=== PATIENT | male | born 1995 | race Caucasian/White ===

== ENCOUNTER 2021-11-07 12:17 | Emergency (ER) | payer BC ==
[~2021-11-07] VITALS: Ht 188 cm; Wt 102.1 kg
--- NOTE | 2021-11-07 12:30 | NUR ---
Patient came in to the er c/o abd chin. On room air, breathing evenly and unlabored. connected to the monitor and pulse ox. kept comfortable, will cotninue to monitor accordingly.
[2021-11-07] MEDS ORDERED: KETOROLAC TROMETHAMINE 15 MG/ML VIAL ONE (12:40)
[2021-11-07] MEDS ORDERED: ONDANSETRON HCL/PF 4 MG/2 ML VIAL ONE (12:40)
--- NOTE | 2021-11-07 12:45 | NUR ---
IV access initiated and blood drawned and sent to lab.
[2021-11-07 12:51] LABS: BASOPHILS % (AUTO) 0.3 % (0.0-2.0); EOSINOPHILS % (AUTO) 0.2 % (0.0-6.0); HEMATOCRIT 47 % (39-51); HEMOGLOBIN 16.4 g/dL (13.5-17.5); LYMPHOCYTES # (AUTO) 1.3 K/uL (0.8-4.8); LYMPHOCYTES % (AUTO) 11.9 % (20.0-44.0); MEAN CORPUSCULAR HGB CONC 35 g/dl (31.0-36.0); MEAN CORPUSCULAR VOLUME 82 fL (80-96); MONOCYTES # (AUTO) 0.5 K/uL (0.1-1.30); MONOCYTES % (AUTO) 4.9 % (2.0-12.0); NEUTROPHILS # (AUTO) 8.7 K/uL (1.8-8.9); NEUTROPHILS % (AUTO) 82.7 % (43.0-81.0); PLATELET COUNT (AUTO) 305 K/uL (150-450); RED BLOOD CELL COUNT(AUTO) 5.81 MIL/uL (4.5-6.0); WHITE BLOOD COUNT (AUTO) 10.5 K/uL (4.3-11.0)
[2021-11-07] MEDS ORDERED: ONDANSETRON HCL/PF 4 MG/2 ML VIAL IVP ONE (13:00)
[2021-11-07] MEDS ORDERED: IV NS 0.9% 1,000 ML BAG IV ONE (13:00)
[2021-11-07] MEDS ORDERED: KETOROLAC TROMETHAMINE INJ 30 MG/ML VIAL IV ONE (13:00)
[2021-11-07 13:07] LABS: ALBUMIN 4.9 g/dL (3.4-5.0); BILIRUBIN,DIRECT 0.1 mg/dL (0.0-0.2); BILIRUBIN,TOTAL 0.7 mg/dL (0.2-1.0); CALCIUM, SERUM 9.5 mg/dL (8.5-10.1); CREATININE 1.1 mg/dL (0.6-1.3); POTASSIUM 3.8 mmol/L (3.5-5.1); TOTAL PROTEIN, SERUM 8.6 g/dL (6.4-8.2)
[2021-11-07] MEDS ORDERED: HALOPERIDOL LACTATE INJ 5 MG/ML VIAL ONE (13:40)
[2021-11-07] MEDS ORDERED: TRAMADOL HCL 50 MG TABLET ONE (13:41)
[2021-11-07] MEDS ORDERED: TRAM-351 PO (13:59)
[2021-11-07] MEDS ORDERED: ONDA4TAB11 PO (13:59)
[2021-11-07] MEDS ORDERED: HALOPERIDOL LACTATE INJ 5 MG/ML VIAL IM ONE (14:00)
[2021-11-07] MEDS ORDERED: TRAMADOL HCL 50 MG TABLET PO ONE (14:00)
[2021-11-07] MEDS ORDERED: DICY10CA37 PO (15:17)
[2021-11-07 15:20] VITALS: BP 133/88
--- NOTE | 2021-11-07 15:21 | NUR ---
Patient discharged to home in stable condition. Written and verbal after care instructions given. Patient verbalizes understanding of instruction.IV removed. Catheter intact and site benign. Pressure and 4x4 applied to site. No bleeding noted.
== END 2021-11-07 15:21 | disposition home or self-care (01) ==
LOC: ER 12:42
DX: Z60.2 Problems related to living alone (principal); R10.9 Unspecified abdominal pain; R19.7 Diarrhea, unspecified; R11.2 Nausea with vomiting, unspecified
CPT/HCPCS: 99284; 96374; 96361; 96375; 85025; 80048; 83690; 80076; 36415; 96372; J1630; J2405; J7030; J1885

== ENCOUNTER 2021-11-11 07:39 | Emergency (ER) | payer BC ==
[~2021-11-11] VITALS: Ht 188 cm; Wt 102.1 kg
[~2021-11-11 07:39] MED LIST: DICY10CA37 PO; ONDA4TAB11 PO; TRAM-351 PO
[2021-11-11] MEDS ORDERED: METO-295 PO (07:51)
[2021-11-11] MEDS ORDERED: METOCLOPRAMIDE HCL 10 MG/2 ML VIAL ONE (07:54)
[2021-11-11] MEDS ORDERED: METOCLOPRAMIDE HCL 10 MG/2 ML VIAL IM ONE (08:00)
[2021-11-11 08:25] VITALS: BP 136/89
== END 2021-11-11 08:26 | disposition home or self-care (01) ==
LOC: ER 07:44
DX: R11.2 Nausea with vomiting, unspecified (principal); Z60.2 Problems related to living alone; Z79.899 Other long term (current) drug therapy
CPT/HCPCS: 99283; 96372; J2765

== ENCOUNTER 2021-12-26 08:23 | Inpatient (IN) | payer BC ==
[~2021-12-26] VITALS: Ht 190.5 cm; Wt 84.6 kg
[~2021-12-26 08:23] MED LIST changes: +METO-295 PO
[2021-12-26] MEDS ORDERED: FAMOTIDINE/PF INJ 20 MG/2 ML VIAL IV ONE ×2 (09:00→09:05)
[2021-12-26] MEDS ORDERED: MAG HYDROX/AL HYDROX/SIMETH 30 ML UDC PO ONE (09:00)
[2021-12-26] MEDS ORDERED: ONDANSETRON HCL/PF 4 MG/2 ML VIAL IVP ONE (09:00)
[2021-12-26] MEDS ORDERED: ONDANSETRON HCL/PF 4 MG/2 ML VIAL ONE ×2 (09:05→12:02)
[2021-12-26] MEDS ORDERED: MAG HYDROX/AL HYDROX/SIMETH 30 ML UDC ONE ×2 (09:05→10:47)
--- NOTE | 2021-12-26 09:15 | NUR ---
RESEARCH SOFTWARE ENGINEER AT BED SIDE
[2021-12-26 09:30] LABS: BASOPHILS % (AUTO) 0.2 % (0.0-2.0); EOSINOPHILS % (AUTO) 0.3 % (0.0-6.0); HEMATOCRIT 46 % (39-51); HEMOGLOBIN 15.5 g/dL (13.5-17.5); LYMPHOCYTES # (AUTO) 1.3 K/uL (0.8-4.8); LYMPHOCYTES % (AUTO) 9.7 % (20.0-44.0); MEAN CORPUSCULAR HGB CONC 34 g/dl (31.0-36.0); MEAN CORPUSCULAR VOLUME 82 fL (80-96); MONOCYTES # (AUTO) 0.6 K/uL (0.1-1.30); MONOCYTES % (AUTO) 4.4 % (2.0-12.0); NEUTROPHILS # (AUTO) 11.3 K/uL (1.8-8.9); NEUTROPHILS % (AUTO) 85.4 % (43.0-81.0); PLATELET COUNT (AUTO) 301 K/uL (150-450); RED BLOOD CELL COUNT(AUTO) 5.61 MIL/uL (4.5-6.0); WHITE BLOOD COUNT (AUTO) 13.2 K/uL (4.3-11.0)
--- NOTE | 2021-12-26 09:30 | NUR ---
BIBS C/O ABDOMINAL PAIN/NAUSEA AND VOMITING X 4 DAYS. AMBULATORY, PLACED ON BED, AAOX4, NAUSEATED-VOMITING, IN PAIN 8/ PS
[2021-12-26 09:49] LABS: ALBUMIN 4.6 g/dL (3.4-5.0); BILIRUBIN,DIRECT 0.2 mg/dL (0.0-0.2); CALCIUM, SERUM 9.3 mg/dL (8.5-10.1); POTASSIUM 3.8 mmol/L (3.5-5.1); TOTAL PROTEIN, SERUM 7.9 g/dL (6.4-8.2)
[2021-12-26] MEDS ORDERED: METOCLOPRAMIDE HCL 10 MG/2 ML VIAL IV ONE (10:00)
[2021-12-26] MEDS ORDERED: MORPHINE SULFATE INJ 2 MG/ML DISP.SYRIN IV ONE (10:00)
[2021-12-26] MEDS ORDERED: MORPHINE SULFATE INJ 4 MG/ML DISP.SYRIN ONE (10:47)
[2021-12-26] MEDS ORDERED: METOCLOPRAMIDE HCL 10 MG/2 ML VIAL ONE (10:48)
[2021-12-26] MEDS ORDERED: ONDANSETRON HCL/PF 4 MG/2 ML VIAL IV ONE (11:00)
[2021-12-26] MEDS ORDERED: NOREPINEPHRINE 8 MG in IV NS 0.9% 242 ML IV PRN (11:00)
[2021-12-26] MEDS ORDERED: HALOPERIDOL LACTATE INJ 5 MG/ML VIAL IV ONE (14:00)
[2021-12-26] MEDS ORDERED: HALOPERIDOL LACTATE INJ 5 MG/ML VIAL ONE (14:37)
[2021-12-26] MEDS ORDERED: IV NS 0.9% 1,000 ML IV ONE (15:00)
--- NOTE | 2021-12-26 15:00 | NUR ---
MOVE SHEET SUBMITTED.
--- NOTE | 2021-12-26 15:10 | NUR ---
JC FOR COVID19 SENT TO LAB
--- NOTE | 2021-12-26 20:23 | NUR ---
RM CHANGED TO 307-2
--- NOTE | 2021-12-26 20:25 | NUR ---
REPORT GIVEN TO MATTHEW HENNESSY ROOM 307-2 FOR VERNA
[2021-12-26 20:45] VITALS: BP 137/71
--- NOTE | 2021-12-26 21:26 | NUR ---
INTERNAL AFFAIRS INVESTIGATOR NOTES: RECEIVED PATIENT VIA GURNEY ON FLOOR AT 2054, PLACED IN BED COMFORTABLY, BED IN LOW POSITION CALL LIGHTS WITHIN REACH, NO COMPLAIN OF PAIN AND DISCOMFORT AT THIS TIME , ON ROOM AIR SATURATING WELL, ADMITTED TO MED SURG, V/S ARE WITHIN NORMAL RANGE PATIENT IS A/OX4 AMBULATORY ABLE TO MAKE NEEDS KNOWN, SKIN ASSESSMENT DONE, NO SKIN ISSUES HAS BEEN OBSERVED, PATIENT REFUSED GOWN CHANGED, INVENTORY OF ITEMS DONE AND DOCUMENTED/SIGNED, PATIENT WAS ORIENTED TO ROOM REMIND TO USE CALL LIGHTS WHEN NEEDED ASSISTANCE, PATIENT KEPT CLEAN AND DRY ALL NEEDS MET WILL CONTINUE TO MONITOR.
[2021-12-26] MEDS ORDERED: diphenhydrAMINE HCL 50 MG/ML VIAL IV PRN (21:30)
[2021-12-26] MEDS ORDERED: Z GUARD REMEDY 4 OZ OINT TP PRN (21:30)
[2021-12-26] MEDS ORDERED: ACETAMINOPHEN 325 MG TABLET PO PRN (21:30)
[2021-12-26] MEDS: METOCLOPRAMIDE HCL 10 MG/2 ML VIAL IV SCH (22:01)
[2021-12-26] MEDS: IV LR 1000 ML 1,000 ML IV PRN (22:16)
[2021-12-27] MEDS: METOCLOPRAMIDE HCL 10 MG/2 ML VIAL IV SCH ×3 (03:39→14:58)
--- NOTE | 2021-12-27 04:52 | NUR ---
CHARGE NURSE NOTES COMPLAINED OF ABDOMINAL PAIN- GOT AN ORDER FROM [facility] SOFIA-KOBI MORPHINE 2 MG IV GIVEN Q6HRS. PRN, ORDER NOTED AND CARRIED OUT
[2021-12-27] MEDS: ONDANSETRON HCL/PF 4 MG/2 ML VIAL IVP PRN ×3 (06:17→17:47)
[2021-12-27 06:19] LABS: CALCIUM, SERUM 8.8 mg/dL (8.5-10.1); PHOSPHORUS 3.8 mg/dL (2.5-4.9); POTASSIUM 3.4 mmol/L (3.5-5.1)
[2021-12-27 07:22] LABS: BASOPHILS % (AUTO) 0.4 % (0.0-2.0); EOSINOPHILS % (AUTO) 1.4 % (0.0-6.0); HEMATOCRIT 42 % (39-51); HEMOGLOBIN 14.1 g/dL (13.5-17.5); LYMPHOCYTES # (AUTO) 1.8 K/uL (0.8-4.8); LYMPHOCYTES % (AUTO) 25.3 % (20.0-44.0); MEAN CORPUSCULAR HGB CONC 34 g/dl (31.0-36.0); MEAN CORPUSCULAR VOLUME 83 fL (80-96); MONOCYTES # (AUTO) 0.4 K/uL (0.1-1.30); MONOCYTES % (AUTO) 6.1 % (2.0-12.0); NEUTROPHILS # (AUTO) 4.9 K/uL (1.8-8.9); NEUTROPHILS % (AUTO) 66.8 % (43.0-81.0); PLATELET COUNT (AUTO) 265 K/uL (150-450); RED BLOOD CELL COUNT(AUTO) 5.08 MIL/uL (4.5-6.0); WHITE BLOOD COUNT (AUTO) 7.3 K/uL (4.3-11.0)
--- NOTE | 2021-12-27 07:27 | NUR ---
MS RN OPENING NOTES PATIENT RECEIVED AWAKE IN BED IN NO ACUTE SIGNS OF DISTRESS. A/O X4, ABLE TO MAKE NEEDS KNOWN, DENIES PAIN OR ANY DISCOMFORTS AT THIS TIME. ON ROOM AIR, BREATHING EVEN AND UNLABORED. IV ACCESS ON RAC #20G INTACT WITH IVF OF LR @ 100 ML/HR INFUSING WELL, NO S/S OF INFILTRATION NOTED. SAFETY PRECAUTIONS IN PLACE: BED LOCKED IN LOW POSITION, SIDE RAILS X2, TRAY TABLE AND CALL LIGHT WITHIN EASY REACH OF PT . WILL CONTINUE TO MONITOR PT ACCORDINGLY.
--- NOTE | 2021-12-27 07:30 | NUR ---
MS RN CLOSING NOTES: PATIENT SLEEP IN BED COMFORTABLY, BED IN LOW POSITION CALL LIGHTS WITHIN REACH, NO COMPLAIN OF PAIN AND DISCOMFORT AT THIS TIME, ON ROOM AIR SATURATING WELL, WITH IV LINE AT RAC#20 WITH ONGOING PLR 1000ML@ 100ML/HR INFUSING WELL, PATIENT IS AMBULATORY, A/O ABLE TO MAKE NEEDS KNOWN, PATIENT KEPT CLEAN AND DRY ALL NEEDS MET ENDORSE TO INCOMING SHIFT.
[2021-12-27 08:00] VITALS: BP 142/75
[2021-12-27] MEDS: IV LR 1000 ML 1,000 ML IV PRN (08:57)
[2021-12-27] MEDS: POTASSIUM CL. PREMIX PERIPHER. 50 ML IV SCH ×2 (09:24→10:48)
[2021-12-27] MEDS: MORPHINE SULFATE INJ 2 MG/ML DISP.SYRIN IV PRN ×2 (10:15→16:30)
--- NOTE | 2021-12-27 10:18 | NUR ---
RN NOTES PT C//O ACHING AND SHARP MID LOWER ABDOMINAL PAIN, 8/10 SCALE. PRN MORPHINE 2 MG IVP ADMINISTERED AT 1015. WILL CONTINUE TO MONITOR AND REASSESS PT.
[2021-12-27] MEDS ORDERED: HYOS-15 PO (14:24)
[2021-12-27] MEDS ORDERED: ONDA4TAB11 PO (14:24)
[2021-12-27] MEDS ORDERED: PANT40TA2 PO (14:24)
[2021-12-27] MEDS ORDERED: SUCR1TAB31 PO (14:24)
[2021-12-27 16:00] VITALS: BP 136/66
--- NOTE | 2021-12-27 18:01 | NUR ---
ENGINE WIPER NOTES PT DISCHARGED HOME IN STABLE CONDITION. A/O X4. ABLE TO MAKE NEEDS KNOWN. NO SKIN ISSUES NOTED. ALL BELONGINGS ACCOUNTED FOR AND PT SIGNED BELONGINGS LIST. IV ACCESS ON RAC G#2O REMOVED WITH NO ACTIVE BLEEDING NOTED, DRY PRESSURE DRESSING APPLIED AT SITE. NAME/ARM BAND REMOVED. HEALTH TEACHINGS AND DISCHARGE INSTRUCTIONS GIVEN TO PATIENT AND VERBALIZED UNDERSTANDING. EXIT FOLDER HANDED TO PT. PT LEFT UNIT @ 1755 AMBULATORY ACCOMPANIED BY JEAN SAMS. AND CHARGE NURSE AWARE OF DISCHARGE.
[2021-12-28] MEDS ORDERED: HALOPERIDOL LACTATE INJ 5 MG/ML VIAL ONE (09:49)
== END 2021-12-27 18:00 | disposition home or self-care (01) | DRG 395 ==
LOC: ER 08:25 → TRANSITION 17:38 → MED 20:27
PROVIDERS: ADMIT Nurse Practitioner Acute Care; ATTEND Nurse Practitioner Acute Care
DX: R11.15 Cyclical vomiting syndrome unrelated to migraine (principal); F31.9 Bipolar disorder, unspecified; Z20.822 Contact with and (suspected) exposure to COVID-19; R63.0 Anorexia; F12.90 Cannabis use, unspecified, uncomplicated; Z68.23 Body mass index [BMI] 23.0-23.9, adult; E87.6 Hypokalemia
CPT/HCPCS: 36415; 76870-TC; 80048-TC; 80076-TC; 83690-TC; 83735-TC; 84100-TC; 85025-TC; 87081-TC; C9803; G0378; J1630; J2270; J2405; J2765; J3480; J3490; J7120

== ENCOUNTER 2021-12-28 07:35 | Inpatient (IN) | payer BC ==
[~2021-12-28] VITALS: Ht 190.5 cm; Wt 83.0 kg
[~2021-12-28 07:35] MED LIST changes: -DICY10CA37 PO; +HYOS-15 PO; -METO-295 PO; +PANT40TA2 PO; +SUCR1TAB31 PO; -TRAM-351 PO
[2021-12-28] MEDS ORDERED: IV NS 0.9% 1,000 ML BAG IV ONE (08:00)
[2021-12-28] MEDS ORDERED: FAMOTIDINE/PF INJ 20 MG/2 ML VIAL IV ONE ×2 (08:00→08:01)
[2021-12-28] MEDS ORDERED: ONDANSETRON HCL/PF 4 MG/2 ML VIAL IVP ONE (08:00)
[2021-12-28] MEDS ORDERED: ONDANSETRON HCL/PF 4 MG/2 ML VIAL ONE (08:01)
[2021-12-28 08:14] LABS: BASOPHILS % (AUTO) 0.3 % (0.0-2.0); EOSINOPHILS % (AUTO) 0.6 % (0.0-6.0); HEMATOCRIT 42 % (39-51); HEMOGLOBIN 14.5 g/dL (13.5-17.5); LYMPHOCYTES # (AUTO) 1.1 K/uL (0.8-4.8); LYMPHOCYTES % (AUTO) 14.9 % (20.0-44.0); MEAN CORPUSCULAR HGB CONC 34 g/dl (31.0-36.0); MEAN CORPUSCULAR VOLUME 82 fL (80-96); MONOCYTES # (AUTO) 0.5 K/uL (0.1-1.30); MONOCYTES % (AUTO) 7.3 % (2.0-12.0); NEUTROPHILS # (AUTO) 5.6 K/uL (1.8-8.9); NEUTROPHILS % (AUTO) 76.9 % (43.0-81.0); PLATELET COUNT (AUTO) 277 K/uL (150-450); RED BLOOD CELL COUNT(AUTO) 5.15 MIL/uL (4.5-6.0); WHITE BLOOD COUNT (AUTO) 7.3 K/uL (4.3-11.0)
[2021-12-28 08:23] LABS: CALCIUM, SERUM 9.1 mg/dL (8.5-10.1); CREATININE 0.9 mg/dL (0.6-1.3); POTASSIUM 3.7 mmol/L (3.5-5.1)
[2021-12-28 08:29] LABS: ALBUMIN 4.5 g/dL (3.4-5.0); BILIRUBIN,DIRECT 0.2 mg/dL (0.0-0.2); TOTAL PROTEIN, SERUM 7.6 g/dL (6.4-8.2)
[2021-12-28] MEDS: POTASSIUM CHLORIDE 20 MEQ TAB.PRT.SR PO ONE ×2 (10:00→10:50)
[2021-12-28] MEDS ORDERED: HALOPERIDOL LACTATE INJ 5 MG/ML VIAL IVP ONE (10:00)
[2021-12-28] MEDS ORDERED: Z GUARD REMEDY 4 OZ OINT TP PRN (11:30)
[2021-12-28] MEDS ORDERED: MAGNESIUM HYDROXIDE 30 ML UDC PO PRN (11:30)
[2021-12-28] MEDS ORDERED: ZOLPIDEM TARTRATE 5 MG TABLET PO PRN (11:30)
[2021-12-28] MEDS ORDERED: MAG HYDROX/AL HYDROX/SIMETH 30 ML UDC PO PRN (11:30)
[2021-12-28 12:00] VITALS: BP 150/79
[2021-12-28] MEDS: POTASSIUM CL. PREMIX PERIPHER. 50 ML IV SCH ×2 (12:34→13:55)
[2021-12-28] MEDS: ACETAMINOPHEN 325 MG TABLET PO PRN (12:44)
[2021-12-28] MEDS: IV LR 1000 ML 1,000 ML IV PRN (12:50)
[2021-12-28] MEDS: ONDANSETRON HCL/PF 4 MG/2 ML VIAL IVP PRN ×2 (13:20→20:37)
[2021-12-28] MEDS: MORPHINE SULFATE INJ 2 MG/ML DISP.SYRIN IV PRN ×2 (13:34→20:10)
[2021-12-28 16:00] VITALS: BP 144/81
[2021-12-28] MEDS: METOCLOPRAMIDE HCL 10 MG/2 ML VIAL IV PRN (17:15)
[2021-12-28] MEDS: PROCHLORPERAZINE EDISYLATE 10 MG/2 ML VIAL IM PRN (18:56)
[2021-12-28 20:00] VITALS: BP 152/74
[2021-12-29] MEDS: IV LR 1000 ML 1,000 ML IV PRN ×3 (00:11→21:31)
[2021-12-29 04:00] VITALS: BP 145/73
[2021-12-29] MEDS: MORPHINE SULFATE INJ 2 MG/ML DISP.SYRIN IV PRN ×3 (05:34→14:01)
[2021-12-29] MEDS: ONDANSETRON HCL/PF 4 MG/2 ML VIAL IVP PRN ×2 (05:35→09:44)
[2021-12-29] MEDS: METOCLOPRAMIDE HCL 10 MG/2 ML VIAL IV PRN (06:14)
[2021-12-29 07:18] LABS: BASOPHILS % (AUTO) 0.4 % (0.0-2.0); EOSINOPHILS % (AUTO) 0.8 % (0.0-6.0); HEMATOCRIT 43 % (39-51); HEMOGLOBIN 14.9 g/dL (13.5-17.5); LYMPHOCYTES # (AUTO) 1.6 K/uL (0.8-4.8); LYMPHOCYTES % (AUTO) 23.6 % (20.0-44.0); MEAN CORPUSCULAR HGB CONC 34 g/dl (31.0-36.0); MEAN CORPUSCULAR VOLUME 82 fL (80-96); MONOCYTES # (AUTO) 0.5 K/uL (0.1-1.30); MONOCYTES % (AUTO) 7.2 % (2.0-12.0); NEUTROPHILS # (AUTO) 4.5 K/uL (1.8-8.9); PLATELET COUNT (AUTO) 282 K/uL (150-450); WHITE BLOOD COUNT (AUTO) 6.7 K/uL (4.3-11.0)
[2021-12-29 08:00] VITALS: BP 141/81
[2021-12-29 08:14] LABS: CREATININE 0.9 mg/dL (0.6-1.3); MAGNESIUM 2.2 mg/dL (1.8-2.4); PHOSPHORUS 3.6 mg/dL (2.5-4.9); POTASSIUM 3.9 mmol/L (3.5-5.1)
[2021-12-29] MEDS: PROCHLORPERAZINE EDISYLATE 10 MG/2 ML VIAL IM PRN (11:40)
[2021-12-29] MEDS: diphenhydrAMINE HCL 50 MG/ML VIAL IV SCH ×2 (14:00→18:40)
[2021-12-29] MEDS: ONDANSETRON HCL/PF 4 MG/2 ML VIAL IV PRN ×3 (14:00→22:07)
[2021-12-29] MEDS: PANTOPRAZOLE 40 MG VIAL IV SCH (14:01)
[2021-12-29] MEDS ORDERED: IOHEXOL-300 100 ML VIAL IV ONE (14:14)
[2021-12-29] MEDS ORDERED: CT SWABBABLE VALVE TRANS SET 1 EA INFUS.SET MC ONE (14:14)
[2021-12-29] MEDS ORDERED: IV NS 0.9% 250 ML IV ONE (14:14)
[2021-12-29] MEDS: LORAZEPAM INJ 2 MG/ML VIAL IV PRN ×2 (14:59→21:30)
[2021-12-29 16:00] VITALS: BP 143/79
[2021-12-29] MEDS: KETOROLAC TROMETHAMINE INJ 30 MG/ML VIAL IV PRN ×2 (17:52→23:56)
[2021-12-29 20:00] VITALS: BP 153/90
[2021-12-30] MEDS: diphenhydrAMINE HCL 50 MG/ML VIAL IV SCH ×4 (01:27→19:54)
[2021-12-30] MEDS: MORPHINE SULFATE INJ 2 MG/ML DISP.SYRIN IV PRN (02:16)
[2021-12-30 04:00] VITALS: BP 128/68
[2021-12-30] MEDS: ONDANSETRON HCL/PF 4 MG/2 ML VIAL IV PRN ×6 (04:36→20:32)
[2021-12-30 06:24] LABS: BASOPHILS % (AUTO) 0.3 % (0.0-2.0); EOSINOPHILS % (AUTO) 0.6 % (0.0-6.0); HEMATOCRIT 41 % (39-51); LYMPHOCYTES # (AUTO) 1.7 K/uL (0.8-4.8); LYMPHOCYTES % (AUTO) 22.1 % (20.0-44.0); MEAN CORPUSCULAR HGB CONC 34 g/dl (31.0-36.0); MEAN CORPUSCULAR VOLUME 82 fL (80-96); MONOCYTES # (AUTO) 0.6 K/uL (0.1-1.30); MONOCYTES % (AUTO) 7.7 % (2.0-12.0); NEUTROPHILS # (AUTO) 5.2 K/uL (1.8-8.9); NEUTROPHILS % (AUTO) 69.3 % (43.0-81.0); PLATELET COUNT (AUTO) 266 K/uL (150-450); RED BLOOD CELL COUNT(AUTO) 4.99 MIL/uL (4.5-6.0); WHITE BLOOD COUNT (AUTO) 7.5 K/uL (4.3-11.0)
[2021-12-30 06:30] LABS: CALCIUM, SERUM 8.7 mg/dL (8.5-10.1); CREATININE 0.9 mg/dL (0.6-1.3); POTASSIUM 3.7 mmol/L (3.5-5.1)
[2021-12-30] MEDS: IV LR 1000 ML 1,000 ML IV PRN ×2 (08:05→18:24)
[2021-12-30] MEDS: KETOROLAC TROMETHAMINE INJ 30 MG/ML VIAL IV PRN ×3 (08:05→22:14)
[2021-12-30] MEDS: PANTOPRAZOLE 40 MG VIAL IV SCH (08:06)
[2021-12-30] MEDS: LORAZEPAM INJ 2 MG/ML VIAL IV PRN ×2 (11:20→18:18)
[2021-12-30 12:00] VITALS: BP 150/80
[2021-12-30 20:00] VITALS: BP 131/73
[2021-12-31] MEDS: diphenhydrAMINE HCL 50 MG/ML VIAL IV SCH ×3 (01:36→12:54)
[2021-12-31] MEDS: ONDANSETRON HCL/PF 4 MG/2 ML VIAL IV PRN ×3 (01:36→13:55)
[2021-12-31 04:00] VITALS: BP 143/85
[2021-12-31] MEDS: METOCLOPRAMIDE HCL 10 MG/2 ML VIAL IV PRN ×2 (04:11→16:10)
[2021-12-31] MEDS: KETOROLAC TROMETHAMINE INJ 30 MG/ML VIAL IV PRN ×2 (04:15→10:23)
[2021-12-31] MEDS: IV LR 1000 ML 1,000 ML IV PRN (05:41)
[2021-12-31 06:03] LABS: BASOPHILS % (AUTO) 0.5 % (0.0-2.0); EOSINOPHILS % (AUTO) 1.3 % (0.0-6.0); HEMATOCRIT 39 % (39-51); HEMOGLOBIN 13.7 g/dL (13.5-17.5); LYMPHOCYTES # (AUTO) 1.9 K/uL (0.8-4.8); MEAN CORPUSCULAR HGB CONC 35 g/dl (31.0-36.0); MEAN CORPUSCULAR VOLUME 81 fL (80-96); MONOCYTES # (AUTO) 0.7 K/uL (0.1-1.30); MONOCYTES % (AUTO) 7.7 % (2.0-12.0); NEUTROPHILS # (AUTO) 6.7 K/uL (1.8-8.9); NEUTROPHILS % (AUTO) 70.5 % (43.0-81.0); PLATELET COUNT (AUTO) 255 K/uL (150-450); RED BLOOD CELL COUNT(AUTO) 4.82 MIL/uL (4.5-6.0); WHITE BLOOD COUNT (AUTO) 9.5 K/uL (4.3-11.0)
[2021-12-31 07:51] LABS: CALCIUM, SERUM 8.9 mg/dL (8.5-10.1); POTASSIUM 3.7 mmol/L (3.5-5.1)
[2021-12-31] MEDS: PANTOPRAZOLE 40 MG VIAL IV SCH (08:19)
[2021-12-31] MEDS: LORAZEPAM INJ 2 MG/ML VIAL IV PRN (11:04)
[2021-12-31 12:00] VITALS: BP 135/78
[2021-12-31] MEDS: ACETAMINOPHEN 325 MG TABLET PO PRN (12:02)
[2021-12-31] MEDS ORDERED: IBUP-1955 PO (13:00)
[2021-12-31] MEDS ORDERED: HYDROMORPHONE 1 MG/1 ML DISP.SYRIN IV ONE (13:30)
== END 2021-12-31 16:57 | disposition home or self-care (01) | DRG 918 ==
LOC: ER 07:37 → MEDSG1 09:18
PROVIDERS: ADMIT Nurse Practitioner Acute Care; ATTEND Nurse Practitioner Acute Care
DX: T40.711A Poisoning by cannabis, accidental (unintentional), initial encounter (principal); R11.15 Cyclical vomiting syndrome unrelated to migraine; K52.9 Noninfective gastroenteritis and colitis, unspecified; M79.7 Fibromyalgia; K44.9 Diaphragmatic hernia without obstruction or gangrene; F12.90 Cannabis use, unspecified, uncomplicated; U07.0 Vaping-related disorder; Y92.9 Unspecified place or not applicable; A08.4 Viral intestinal infection, unspecified
CPT/HCPCS: 36415; 74170-TC; 80048-TC; 80061-TC; 80076-TC; 83690-TC; 83735-TC; 84100-TC; 85025-TC; 87081-TC; C9113; G0378; J0780; J1170; J1200; J1885; J2060; J2270; J2405; J2765; J3480; J3490; J7030; J7050; J7120; Q9967